=== PATIENT | male | born 1995 | race African-American/Black ===

== ENCOUNTER 2018-03-07 04:38 | Emergency (ER) | payer SELFPAY ==
[~2018-03-07] VITALS: Ht 203.2 cm; Wt 65.8 kg
--- NOTE | 2018-03-07 04:56 | NUR ---
PT IN BED. PT'S VISITORS AT BEDSIDE. PT IS AAOX4. PT STATES HAVING PAIN ANKLE PAIN RADIATING TO RT KNEE. HOWEVER WHEN ATTEMPTING TO ASSESS PAIN CHARACTERISTICS PT STATES THAT "ANKLE DOESN'T REALLY HURT AND THAT THE IS HARD TO DESCRIBE." NO SIGNS OF ACUTE DISTRESS WITNESSED AT THIS TIME.
[2018-03-07] MEDS ORDERED: HYDROCODONE/APAP 5-325MG TABLET PO ONE (05:00)
[2018-03-07] MEDS ORDERED: ONDANSETRON ODT 4 MG TAB.RAPDIS SL ONE (05:00)
[2018-03-07] MEDS ORDERED: ONDANSETRON ODT 4 MG TAB.RAPDIS ONE (05:06)
[2018-03-07] MEDS ORDERED: HYDROCODONE/APAP 5-325MG TABLET ONE (05:06)
--- NOTE | 2018-03-07 05:22 | NUR ---
Patient discharged to home in stable conditon. Written and verbal after care instructions given. Patient verbalizes understanding of instructions. Patient left ED assisted by crutches. Patient left with all personal belongings.
[2018-03-07 05:26] VITALS: BP 128/72
== END 2018-03-07 05:22 | disposition home or self-care (01) ==
LOC: ER 04:41
DX: S93.401A Sprain of unspecified ligament of right ankle, initial encounter (principal); W10.9XXA Fall (on) (from) unspecified stairs and steps, initial encounter; Y93.89 Activity, other specified; Y92.89 Other specified places as the place of occurrence of the external cause; Y99.8 Other external cause status
CPT/HCPCS: 73590; 73610; 99284; A4663; Q0162